=== PATIENT | female | born 1980 | race Two or more races ===

== ENCOUNTER 2016-05-31 07:07 | Inpatient (IN) | payer OTHER ==
[2016-05-29 12:30] LABS: APPEARANCE,URINE CLEAR; BILIRUBIN,URINE NEGATIVE (NEGATIVE); GLUCOSE, URINE NEGATIVE (NEGATIVE); KETONES,URINE NEGATIVE (NEGATIVE); LEUKOCYTE ESTERASE,URINE NEGATIVE (NEGATIVE); NITRITE,URINE NEGATIVE (NEGATIVE); PROTEIN,URINE NEGATIVE (NEGATIVE); URINE SPECIFIC GRAVITY 1.009; UROBILINOGEN,URINE NEGATIVE mg/dL (<2.0)
[2016-05-29 13:05] LABS: ALANINE AMINOTRANSFERASE 54 U/L (9-52); ALBUMIN 4.1 g/dL (3.5-5.0); ALKALINE PHOSPHATASE 127 U/L (38-126); ANION GAP 14 (5-19); ASPARTATE AMINO TRANSFERASE 45 U/L (14-36); BILIRUBIN,TOTAL 0.6 mg/dL (0.2-1.3); BLOOD UREA NITROGEN 15 mg/dL (7-20); CALCIUM 9.9 mg/dL (8.4-10.2); CARBON DIOXIDE 28 mmol/L (22-30); CHLORIDE 99 mmol/L (98-107); CREATININE RESULT 0.66 mg/dL (0.52-1.25); GLUCOSE 78 mg/dL (75-110); POTASSIUM 4.7 mmol/L (3.6-5.0); SODIUM 140.8 mmol/L (137-145); TOTAL PROTEIN 7.4 g/dL (6.3-8.2)
[2016-05-30 15:20] LABS: HEMATOCRIT 41.7 % (36.0-47.0); HEMOGLOBIN 13.5 g/dL (12.0-15.5); HGB HCT DIFFERENCE -1.2; MEAN CORPUSCULAR HEMOGLOBIN 25.8 pg (27.0-33.4); MEAN CORPUSCULAR HGB CONC 32.4 g/dL (32.0-36.0); MEAN CORPUSCULAR VOLUME 80 fl (80-97); RED BLOOD COUNT 5.25 10^6/uL (3.72-5.28); WHITE BLOOD COUNT 5.7 10^3/uL (4.0-10.5)
[~2016-05-31 07:07] MED LIST: CEFAZOLIN SODIUM 1 GM in DEXTROSE 5%-WATER 50 ML IV PRN; LACTATED RINGERS 1000 ML IV PRN
[2016-05-31] MEDS ORDERED: FENTANYL CITRATE INJ/PF 250 MCG/5 ML AMPULE ONE (09:20)
[2016-05-31] MEDS ORDERED: HYDROMORPHONE HCL INJ/PF 2 MG/ML AMPULE ONE (09:21)
[2016-05-31] MEDS ORDERED: PROPOFOL INJ 200 MG/20 ML VIAL IV ONE (09:21)
[2016-05-31] MEDS ORDERED: ACETAMINOPHEN 100 ML IV ONE (09:21)
[2016-05-31] MEDS ORDERED: MIDAZOLAM 2 MG/2 ML INJ ONE (09:21)
[2016-05-31] MEDS ORDERED: OXYCODONE-ACETAMINOPHEN 5-325 MG TABLET PO PRN ×2 (09:53)
[2016-05-31] MEDS ORDERED: MORPHINE SULFATE 10 MG/ML INJ IV PRN (09:53)
[2016-05-31] MEDS ORDERED: MEPERIDINE HCL/PF INJ 25 MG/1 ML DISP.SYRIN IV PRN (09:53)
[2016-05-31] MEDS ORDERED: FENTANYL CITRATE INJ/PF 100 MCG/2 ML AMPUL IV PRN ×3 (09:53)
[2016-05-31] MEDS ORDERED: DIPHENHYDRAMINE HCL 50 MG/ML VIAL IV PRN (09:53)
[2016-05-31] MEDS ORDERED: PROMETHAZINE HCL INJ 25 MG/1 ML VIAL IV PRN ×2 (09:53)
[2016-05-31] MEDS: MICROFIBRILLAR COLLAGEN 1 GM PACK ONE ×2 (09:56→11:08)
[2016-05-31] MEDS ORDERED: BUPIVACAINE INJ/PF LIPOSOME/PF 266 MG/20 ML SDV ONE (11:13)
[2016-05-31] MEDS: FENTANYL CITRATE INJ/PF 100 MCG/2 ML AMPUL ONE ×2 (12:17→12:30)
--- NOTE | 2016-05-31 12:28 | OPERATIVE REPORT E ---
Operative Report NAME: JENNY GARCIA : 1980 AGE: 36Y DATE OF SURGERY: 05/31/2016 ROOM: OR PREOPERATIVE DIAGNOSIS: Symptomatic uterine fibroids. POSTOPERATIVE DIAGNOSIS: Symptomatic uterine fibroids. OPERATION: SAV (total abdominal hysterectomy) with bilateral salpingectomy. SURGEON: PETER CADENA M.D. ANESTHESIA: General endotracheal. ESTIMATED BLOOD LOSS: 500 mL. TISSUE REMOVED OR ALTERED: Uterus and bilateral fallopian tubes. FINDINGS: Enlarged fibroid uterus. Normal tubes and ovaries. PROCEDURE: After discussing risks, benefits and alternatives of the procedure and obtaining informed consent, patient was taken to the operating room, where general anesthesia was achieved. Daley catheter was placed, and she was prepped and draped in the usual standard fashion. Pfannenstiel skin incision was made, and abdomen was entered in layers in the standard fashion. The large fibroid uterus was exteriorized and grasped with a Sanjeev clamp at the most superior fibroid. The patient was then placed in Trendelenburg, and bowel was packed away posteriorly with moistened laparotomy sponges followd by a wide malleable. The fallopian tubes were undermined with the LigaSureImpact device. The round ligaments were grasped with a Federico and suture, ligated with 0 Monocryl,and tagged on either side. They were then interrupted with the LigaSure Impact device. A bladder flap was created on either side in this manner. The bladder flap was created using sharp and blunt dissection and taking care to coagulate bladder pillars as they were identified. The utero-ovarian vessels were then skeletonized. The utero-ovarian's were coagulated and cut with the LigaSure Impact. The uterine arteries were then skeletonized. The uterine arteries were clamped with LigaSure device, coagulated and cut. During this process, there was a fair amount of backbleeding and oozing until both sides were coagulated at the cervical level. The cervical branches of the uterine arteries were grasped with a straight Omega, clamped and cut and suture ligated. In this process, uterosacral ligaments were also clamped, cut and suture ligated at the level of the cuff. The specimen was excised, and the intervening cuff was closed with figure-of-8's of 0 Vicryl. Oozing was noted where the bladder flap had been taken down as it been tented up on her fibroid uterus. This was coagulated and Avitene was applied after irrigating the pelvis. Excellent hemostasis was observed throughout. The packing was removed. The rectus muscles were loosely reapproximated with 2-0 Vicryl. The subfascial spaces were inspected and noted to be hemostatic. The fascia was closed with #1 Vicryl. The subcutaneous tissues were irrigated and hemostasis achieved with cautery. The subcutaneous tissues were closed with 3-0 plain gut. The skin was then closed in a subcuticular fashion with #3 PDS, leaving knots exteriorized on either side of the incision. An OpSite dressing was applied. The count was not correct with a missing forceps. Therefore, intraoperative x-ray was obtained. There was no retained foreign body noted. The patient was awakened from anesthesia and she was taken to recovery in stable condition. The remainder of the count had been correct. DICTATING PHYSICIAN: PETER CADENA M.D. [id number] PHY#: [id number] ID: [id number] JOB#: [id number] ACCT: [id number] cc:PETER CADENA M.D. > MTDD
[2016-05-31] MEDS ORDERED: ONDANSETRON HCL INJ/PF 4 MG/2 ML SDV IV PRN (12:39)
[2016-05-31] MEDS ORDERED: HYDROMORPHONE HCL INJ/PF 2 MG/ML AMPULE IV PRN (12:42)
[2016-05-31] MEDS: RINGERS SOLUTION,LACTATED 1,000 ML IV PRN ×2 (13:32→21:30)
[2016-05-31] MEDS ORDERED: ROCURONIUM BROMIDE INJ 50 MG/5 ML VIAL IV ONE (14:20)
[2016-05-31] MEDS ORDERED: SUCCINYLCHOLINE CHLORIDE INJ 200 MG/10 ML VIAL ONE (14:20)
[2016-05-31] MEDS ORDERED: ONDANSETRON HCL INJ/PF 4 MG/2 ML SDV ONE (14:20)
[2016-05-31] MEDS ORDERED: GLYCOPYRROLATE INJ 0.4 MG/2 ML VIAL ONE (14:20)
[2016-05-31] MEDS ORDERED: NEOSTIGMINE METHYLSULFATE 10 MG/10 ML VIAL ONE (14:20)
[2016-05-31] MEDS: HYDROMORPHONE HCL INJ/PF 2 MG/ML AMPULE IV PRN ×2 (15:47→21:26)
[2016-05-31] MEDS: ACETAMINOPHEN 100 ML IV SCH (17:40)
[2016-05-31] MEDS ORDERED: CEFAZOLIN SODIUM 1 GM in DEXTROSE 5%-WATER 50 ML IV ONE ×4 (18:00)
[2016-06-01] MEDS: ACETAMINOPHEN 100 ML IV SCH ×5 (00:21→23:52)
[2016-06-01] MEDS: OXYCODONE HCL IR 5 MG TABLET PO PRN ×4 (04:56→23:01)
[2016-06-01] MEDS: RINGERS SOLUTION,LACTATED 1,000 ML IV PRN (04:58)
[2016-06-01 07:14] LABS: HEMATOCRIT 28.3 % (36.0-47.0); HGB HCT DIFFERENCE -0.1; MEAN CORPUSCULAR HEMOGLOBIN 26.4 pg (27.0-33.4); MEAN CORPUSCULAR HGB CONC 33.2 g/dL (32.0-36.0); MEAN CORPUSCULAR VOLUME 80 fl (80-97); RED BLOOD COUNT 3.55 10^6/uL (3.72-5.28); WHITE BLOOD COUNT 6.6 10^3/uL (4.0-10.5)
[2016-06-01 07:21] LABS: HEMOGLOBIN 9.4 g/dL (12.0-15.5)
[2016-06-01 07:29] LABS: ANION GAP 8 (5-19); BLOOD UREA NITROGEN 9 mg/dL (7-20); CALCIUM 8.2 mg/dL (8.4-10.2); CARBON DIOXIDE 28 mmol/L (22-30); CHLORIDE 103 mmol/L (98-107); CREATININE RESULT 0.56 mg/dL (0.52-1.25); GLUCOSE 94 mg/dL (75-110); POTASSIUM 3.5 mmol/L (3.6-5.0); SODIUM 138.5 mmol/L (137-145)
[2016-06-01] MEDS ORDERED: SIMETHICONE 80 MG TAB.CHEW PO PRN (08:38)
[2016-06-01] MEDS ORDERED: IBUPROFEN 800 MG TABLET PO PRN (16:18)
[2016-06-01] MEDS ORDERED: SENNOSIDES/DOCUSATE 8.6-50 MG 1 EACH TABLET PO SCH (18:00)
[2016-06-02] MEDS: ACETAMINOPHEN 100 ML IV SCH (06:03)
--- NOTE | 2016-06-02 11:18 | DISCHARGE SUMMARY E ---
Discharge Summary NAME: JENNY GARCIA : 1980 AGE: 36Y ADMITTED: 05/31/2016 DISCHARGED: 06/02/2016 INDICATIONS FOR ADMISSION: 1. Symptomatic uterine fibroids. 2. History of anemia. HOSPITAL COURSE: The patient is a 36-year-old female with large uterine fibroids to an approximately 20 week sized uterus. She had been anemic in the past with this and had been managed with Lysteda and decrease in the menstrual blood loss; however, the fibroids were increasing in size and giving her bulk symptoms as well as deep dyspareunia. She underwent total abdominal hysterectomy and bilateral salpingectomy on 05/31/2016. Her postoperative course was unremarkable. Postoperative hematocrit was 28.3, but she was asymptomatic with this. Her creatinine was stable postoperatively. By the time of discharge, she was ambulating and tolerating p.o. She was voiding without difficulty and had passed flatus. DISCHARGE DIAGNOSES: 1. Symptomatic uterine fibroids status post total abdominal hysterectomy. 2. Acute blood loss anemia. PLAN: The patient is discharged to home. She has prescriptions for Percocet and Motrin at home. She is to be on pelvic rest, light activity, regular diet. She has followup on for wound check. She will follow up sooner should problems arise. DICTATING PHYSICIAN: PETER CADENA M.D. [id number] PHY#: [id number] ID: [id number] JOB#: [id number] ACCT: [id number] cc:PETER CADENA M.D. >
[2016-06-02 11:19] VITALS: BP 110/66
== END 2016-06-02 12:00 | disposition home or self-care (01) | DRG 742 ==
LOC: INOR 07:07 → 2N 13:10
PROVIDERS: ADMIT Specialist; ATTEND Specialist
PROC: 0UTC0ZZ Resection of Cervix, Open Approach (ICD-10-PCS; 2016-05-31)
PROC: 0UT70ZZ Resection of Bilateral Fallopian Tubes, Open Approach (ICD-10-PCS; 2016-05-31)
PROC: 0UT90ZZ Resection of Uterus, Open Approach (ICD-10-PCS; principal; 2016-05-31 09:15)
DX: D25.9 Leiomyoma of uterus, unspecified (principal); D62 Acute posthemorrhagic anemia; N94.12 Deep dyspareunia
CPT/HCPCS: 36415; 74000; 80048; 80053; 81001; 81025; 840; 85025; 85027; 86850; 86900; 86901; 88307; 94799; C9290; J0131; J0330; J0690; J1170; J2250; J2405; J2704; J3010; J3490; J7120

== ENCOUNTER → 2016-06-07 | Outpatient (CLI) | payer OTHER | LOC: OD 15:53 | PROVIDERS: ATTEND Specialist | DX: R05 Cough (principal) | CPT/HCPCS: 71020 ==

== ENCOUNTER 2016-06-10 20:22 | Inpatient (IN) | payer OTHER ==
[2016-06-10] MEDS: RINGERS SOLUTION,LACTATED 1,000 ML IV PRN (22:23)
[2016-06-10] MEDS ORDERED: MORPHINE SULFATE 10 MG/ML INJ IV PRN (22:55)
[2016-06-11] MEDS: RINGERS SOLUTION,LACTATED 1,000 ML IV PRN (05:38)
[2016-06-11 05:56] LABS: ANION GAP 7 (5-19); BLOOD UREA NITROGEN 18 mg/dL (7-20); CALCIUM 8.4 mg/dL (8.4-10.2); CARBON DIOXIDE 24 mmol/L (22-30); CHLORIDE 106 mmol/L (98-107); CREATININE RESULT 0.56 mg/dL (0.52-1.25); GLUCOSE 80 mg/dL (75-110); SODIUM 137.4 mmol/L (137-145)
[2016-06-11 07:03] LABS: ALBUMIN 2.8 g/dL (3.5-5.0); BILIRUBIN,TOTAL 0.6 mg/dL (0.2-1.3); TOTAL PROTEIN 5.3 g/dL (6.3-8.2)
[2016-06-11] MEDS ORDERED: KETOROLAC TROMETHAMINE INJ/PF 30 MG/1 ML SDV IV PRN (08:44)
[2016-06-11] MEDS ORDERED: DEXTROSE 5%-LACTATED RINGERS 1,000 ML IV PRN (08:46)
[2016-06-11] MEDS: LANSOPRAZOLE 30 MG TAB.RAP.DR PO SCH (09:35)
--- NOTE | 2016-06-11 10:13 | PDOC CONSULTATION ---
Consultation Consult Date: 06/11/16 Attending physician:: nomi Consult reason:: is seen at the request of Dr. Lynnette Reid for possible small bowel obstruction. History of Present Illness Admission Date/PCP: 06/10/16 20:22 ADRIENNE HOFFMAN MD History of Present Illness: JENNY GARCIA is a 36 year old female now 2 weeks status post total abdominal hysterectomy for uterine fibroids by Dr. Reid, [facility], open procedure. Who had an uneventful immediate postoperative course. The patient was seen by Dr. Reid in the office doing well last week. Over the weekend after eating chicken soup Saturday night Saturday morning, patient developed abdominal pain nausea and vomiting. He denies history of trauma, previous episodes, with GI virus. She was seen at the [facility] where she had studies x-rays of the abdomen which suggested small bowel obstruction. Patient was transferred to [facility] where she was admitted for observation. Katerina nasogastric tube inserted last night, kept nothing by mouth and on IV fluids. Overnight the patient reports she had some flatus and was feeling better. NG tube is now being clamped. Past Medical History Malignancy Medical History: Denies: Breast Cancer, Cervical Cancer, Leukemia, Ovarian Cancer GI Medical History: Reports: Gastroesophageal Reflux Disease Denies: Crohn's Disease, Hiatal Hernia Hematology: Denies: Anemia, Hemophilia, Sickle Cell Disease Infectious Medical History: Denies: HIV Past Surgical History Past Surgical History: Reports: Other - Patient is status post right hip surgery Denies: Appendectomy, Section, Cholecystectomy, Colostomy, Coronary Artery Bypass Graft, Gastric Bypass Surgery, Herniorrhaphy, Hysterectomy, Mastectomy, Tonsillectomy, Tubal Ligation Social History Smoking Status: Never Smoker Frequency of Alcohol Use: None Hx Recreational Drug Use: No Drugs: None Hx Prescription Drug Abuse: No Family History Parental Family History Reviewed: Yes Children Family History Reviewed: Yes Sibling(s) Family History Reviewed.: Yes Medication/Allergy Home Medications: Ibuprofen [Motrin 400 mg Tablet] 400 mg PO PRN PRN 05/23/16 Mv-Min/Vit C/Glut/Aleshia AC/Hc124 [Airborne Tablet Chewable] 1 each PO PRN PRN 04/14 Allergies/Adverse Reactions: No Known Allergies Allergy (Verified 06/10/16 22:33) Review of Systems Eyes: PRESENT: as per HPI Nose, Mouth, and Throat: PRESENT: as per HPI Breasts: PRESENT: as per HPI Cardiovascular: PRESENT: as per HPI Genitourinary: PRESENT: as per HPI Musculoskeletal: PRESENT: as per HPI Physical Exam Vital Signs: Temp Pulse Resp BP Pulse Ox 98.3 F 80 16 119/61 100 06/11/16 07:43 06/11/16 07:43 06/11/16 07:43 06/11/16 07:43 06/11/16 07:43 Intake & Output 06/10/16 06/11/16 06/12/16 06:59 06:59 06:59 Intake Total 1000 Output Total 180 Balance 1000 -180 Weight 60.1 kg General appearance: PRESENT: mild distress Head exam: PRESENT: normocephalic Eye exam: PRESENT: EOMI Ear exam: PRESENT: TM's normal bilaterally Mouth exam: PRESENT: moist Neck exam: PRESENT: full ROM Respiratory exam: PRESENT: clear to auscultation isatu Cardiovascular exam: PRESENT: RRR Pulses: PRESENT: normal carotid pulses GI/Abdominal exam: PRESENT: other - No distention; abdomen soft no peritoneal signs no rigidity. First pelvic incision healing satisfactorily; Monocryl suture visible. Results Laboratory Results: 06/11/16 05:04 06/11/16 06/11/16 05:04 05:04 Sodium 137.4 Potassium 4.0 Chloride 106 Carbon Dioxide 24 Anion Gap 7 BUN 18 Creatinine 0.56 Est GFR ( Amer) > 60 Est GFR (Non-Af Amer) > 60 Glucose 80 Calcium 8.4 Total Bilirubin 0.6 AST 20 ALT 36 Alkaline Phosphatase 72 Total Protein 5.3 L Albumin 2.8 L Status: Image reviewed by me - Abdominal films from [facility] seen. There are multiple loops of small bowel with gas; positive gas in the colon; small air pockets rectum. Assessment & Plan - Diagnosis (1) Small bowel obstruction, partial Is this a current diagnosis for this admission?: YesPlan: 1. Patient's clinical history physical exam findings and laboratory profile suggests a ileus picture rather than partial small bowel obstruction; the patient appears clinically improved overnight. 2. Agree with Dr. Reid with plans for clamping NG tube, and as tolerated removed nasogastric tube. 3. If clinical improvement, I see no indication for further imaging studies at this time. - Time Time Spent: 30 to 50 Minutes Critical Time spent with patient: 15-24 minutes
--- NOTE | 2016-06-11 10:48 | HISTORY AND PHYSICAL E ---
History and Physical NAME: JENNY GARCIA : 1980 AGE: 36Y ADMITTED: 06/10/2016 ROOM: 226 CHIEF COMPLAINT: Patient transferred from [facility] with partial small bowel obstruction. HISTORY OF PRESENT ILLNESS: This is a 36-year-old female who underwent total abdominal hysterectomy with bilateral salpingectomy for large uterine fibroids on May 31, 2016. She was doing well until yesterday, when she developed abdominal distention, nausea, and vomiting. She presented to [facility] with these complaints, and acute abdominal series was consistent with partial small bowel obstruction. She had NG tube placed and was transferred here. Currently she states she is feeling much better and had passed flatus last night and this morning. She did have a bowel movement a couple days ago. REVIEW OF SYSTEMS: On review of systems, she denies abnormal vaginal discharge, UTI symptoms, increasing abdominal pain except for the distention at the time of her nausea and vomiting yesterday. She denies fevers, chills, shortness of breath, cough. She is otherwise without complaints. PAST MEDICAL HISTORY: Unremarkable. PAST SURGICAL HISTORY: ORIF of hip fracture and total abdominal hysterectomy. FAMILY HISTORY: Noncontributory. ALLERGIES: No known drug allergies. HABITS: Negative x3. OBJECTIVE: VITAL SIGNS: Temperature is 97.9. Heart rate 76. Blood pressure 115/67. GENERAL: In general, patient appears comfortable with NG tube in, in no acute distress. Her NG-tube output was 150 mL over the last 10 hours. LUNGS: Lungs are clear to auscultation. CARDIAC: Regular rate and rhythm, without murmur. ABDOMEN: Abdomen is soft. Bowel sounds are present, occasionally hyperactive. Abdomen is soft and nondistended. Normal postop tenderness for slightly less than 2 weeks postop. Her incision is intact, clean, and dry. EXTREMITIES: Extremities are nontender. LABORATORY DATA: Laboratory data at our facility shows normal electrolytes and liver function tests. Creatinine is normal at 0.56. CBC at [facility] yesterday afternoon showed a white count of 10.9. Hemoglobin was 12.5 and hematocrit 38.1. Her lactic acid was 1.1. RADIOGRAPHS: Images from [facility] were reviewed and consistent with partial small bowel obstruction. ASSESSMENT: Partial small bowel obstruction. Appears to be resolving clinically. Dr. Marcus of General Surgery was consulted. We will place patient on NSAIDs for pain control as needed. We will also place her on Prevacid. We will follow her electrolytes. We will do a trial of clamping NG tube today, and we will check residual volume later. Further imaging as per General Surgery. DICTATING PHYSICIAN: PETER CADENA M.D. [id number] PHY#: [id number] ID: [id number] JOB#: [id number] ACCT: [id number] cc: >
[2016-06-11] MEDS ORDERED: PHENOL/SODIUM PHENOLATE 100 SPRAY/177 ML BOTTLE PO PRN ×2 (15:19→15:27)
[2016-06-11] MEDS ORDERED: OXYCODONE-ACETAMINOPHEN 5-325 MG TABLET PO PRN ×2 (16:09)
[2016-06-11] MEDS ORDERED: ONDANSETRON HCL INJ/PF 4 MG/2 ML SDV IV PRN (16:10)
[2016-06-12 06:54] LABS: HEMATOCRIT 29.6 % (36.0-47.0); HEMOGLOBIN 9.7 g/dL (12.0-15.5); HGB HCT DIFFERENCE -0.5; MEAN CORPUSCULAR HEMOGLOBIN 26.2 pg (27.0-33.4); MEAN CORPUSCULAR HGB CONC 32.7 g/dL (32.0-36.0); MEAN CORPUSCULAR VOLUME 80 fl (80-97); RED BLOOD COUNT 3.69 10^6/uL (3.72-5.28); RED CELL DISTRIBUTION WIDTH 14.6 % (11.5-14.0); WHITE BLOOD COUNT 5.4 10^3/uL (4.0-10.5)
[2016-06-12 07:15] LABS: ALANINE AMINOTRANSFERASE 36 U/L (9-52); ALBUMIN 2.6 g/dL (3.5-5.0); ALKALINE PHOSPHATASE 68 U/L (38-126); ASPARTATE AMINO TRANSFERASE 18 U/L (14-36); BILIRUBIN,TOTAL 0.5 mg/dL (0.2-1.3); BLOOD UREA NITROGEN 9 mg/dL (7-20); CALCIUM 8.4 mg/dL (8.4-10.2); GLUCOSE 88 mg/dL (75-110); MAGNESIUM 1.8 mg/dL (1.6-2.3); PHOSPHORUS 2.8 mg/dL (2.5-4.5); TOTAL PROTEIN 5.3 g/dL (6.3-8.2)
[2016-06-12 07:26] LABS: ANION GAP 5 (5-19); CARBON DIOXIDE 30 mmol/L (22-30); CHLORIDE 105 mmol/L (98-107); POTASSIUM 4.2 mmol/L (3.6-5.0); SODIUM 139.8 mmol/L (137-145)
[2016-06-12] MEDS: LANSOPRAZOLE 30 MG TAB.RAP.DR PO SCH (11:02)
[2016-06-12 11:33] VITALS: BP 103/63
[2016-06-12] MEDS ORDERED: NA PHOS,M-B/NA PHOS,DI-BA (ADULT) 133 ML ENEMA PR ONE (12:00)
[2016-06-12] MEDS ORDERED: DOCUSATE SODIUM 100 MG CAPSULE PO SCH (22:00)
--- NOTE | 2016-06-16 10:53 | DISCHARGE SUMMARY E ---
Discharge Summary NAME: JENNY GARCIA : 1980 AGE: 36Y ADMITTED: 06/10/2016 DISCHARGED: 06/12/2016 ADMITTING DIAGNOSIS: Partial small bowel obstruction. DISCHARGE DIAGNOSIS: Partial small bowel obstruction, resolved. HOSPITAL COURSE: The patient is a 36-year-old female who was admitted about 10 days after total abdominal hysterectomy when she had developed the abrupt onset of nausea, vomiting or abdominal distension. She had initially presented to [facility] and had an acute abdominal series that showed dilated small bowel loops. She had an NG tube placed there and was transferred to our facility, as hysterectomy had been done here. She had surgical consultation on the morning of 06/11; however, by the evening of admission, she was already passing gas and no longer had any nausea or vomiting. She had scant NG tube drainage out overnight. Her diet was, therefore, advanced on 06/11. She was allowed clears around her tube and on the afternoon of 06/11 her feeding tube was discontinued. She was given a full liquid diet on the morning of 06/12 and mechanical soft at lunch. She tolerated this without any nausea or vomiting and she had a large bowel movement with the aid of a Fleet enema. She is to follow up with me later this week. Throughout her stay she was afebrile with normal vital signs, normal white cell count and normal chemistry labs. DISCHARGE MEDICATIONS: The patient had Percocet at home and Motrin at home. DISCHARGE INSTRUCTIONS: She was advised to be on a diet as tolerated with followup if symptoms recur. DICTATING PHYSICIAN: PETER CADENA M.D. [id number] PHY#: [id number] ID: [id number] JOB#: [id number] ACCT: [id number] cc:PETER CADENA M.D. >
== END 2016-06-12 15:00 | disposition home or self-care (01) | DRG 390 ==
LOC: 2S 20:22 → UNDOADMIN 20:22
PROVIDERS: ADMIT Obstetrics & Gynecology; ATTEND Obstetrics & Gynecology
DX: K56.60 Unspecified intestinal obstruction (principal); Z90.710 Acquired absence of both cervix and uterus
CPT/HCPCS: 36415; 80048; 80053; 80076; 83735; 84100; 85027; J1885; J2270; J3490; J7120